=== PATIENT | female | born 1955 | race Caucasian/White ===

== ENCOUNTER → 2017-07-22 | Outpatient (CLI) | payer BC ==
[~2017-07-22] MED LIST: VARE1 PO
== END | disposition home or self-care (01) ==
LOC: LAB SHORT 16:00 → LAB 16:00
PROVIDERS: Internal Medicine
DX: Z01.419 Encounter for gynecological examination (general) (routine) without abnormal findings (principal)
CPT/HCPCS: G0145

== ENCOUNTER 2019-02-23 10:04 | Day surgery (SDC) | payer BC ==
[~2019-02-23] VITALS: Ht 157.5 cm; Wt 69.1 kg
--- NOTE | 2019-02-23 11:08 | NUR ---
02/23/19 1108 Chiquita Lopez 1ST I.V. ATTEMPT IN RIGHT HAND 2MD I.V. ATTEMPT IN RIGHT HAND
--- NOTE | 2019-02-23 14:01 | NUR ---
02/23/19 1401 Jeannine Ludwig PT. C/O HER IV HURTING BEFORE GOING INTO ENDO ROOM. NO INFILTRATION OBSERVED, IV RAN FINE. PT. HAD VERBALIZED THAT THE FIRST IV WAS MISSED. ORSC.NSC LOOSENED IV TEGADERM & PT. HAD VERBALIZED MAKING THE IV FEEL A LITTLE BETTER. WHEN IV WAS DISCONTINUED, OBSERVED FIRST IV SITE WITH APPROX. QUARTER SIZE BRUISING. PT. HAD C/O IV HURTING. PT. INSTRUCTED THAT IF BOTHERSOME SHE COULD PLACE A WARM PACK ON THE SITE AT HOME.
== END 2019-02-23 13:40 | disposition home or self-care (01) ==
LOC: ORSCSDS 10:04
PROVIDERS: Internal Medicine Gastroenterology
PROC: 0DBN8ZX Excision of Sigmoid Colon, Via Natural or Artificial Opening Endoscopic, Diagnostic (ICD-10-PCS; principal; 2019-02-23 11:45)
PROC: 0DBM8ZX Excision of Descending Colon, Via Natural or Artificial Opening Endoscopic, Diagnostic (ICD-10-PCS; principal; 2019-02-23 11:45)
PROC: 0DBH8ZX Excision of Cecum, Via Natural or Artificial Opening Endoscopic, Diagnostic (ICD-10-PCS; principal; 2019-02-23 11:45)
PROC: 0DBL8ZX Excision of Transverse Colon, Via Natural or Artificial Opening Endoscopic, Diagnostic (ICD-10-PCS; principal; 2019-02-23 11:45)
DX: Z12.11 Encounter for screening for malignant neoplasm of colon (principal); Z86.010 Personal history of colon polyps; Z80.0 Family history of malignant neoplasm of digestive organs; D12.0 Benign neoplasm of cecum; K63.5 Polyp of colon; D12.4 Benign neoplasm of descending colon; D12.3 Benign neoplasm of transverse colon; K57.30 Diverticulosis of large intestine without perforation or abscess without bleeding; K21.9 Gastro-esophageal reflux disease without esophagitis; F17.210 Nicotine dependence, cigarettes, uncomplicated; Z79.899 Other long term (current) drug therapy
CPT/HCPCS: 88305; J2704; J7120